=== PATIENT | female | born 1950 | race Caucasian/White ===

== ENCOUNTER 2016-07-02 07:36 | Day surgery (SDC) | payer MEDICARE, OTHER ==
[~2016-07-02 07:36] MED LIST: FENTANYL 250 MCG/5 ML AMP IV PRN; LACTATED RINGERS 1,000 ML IV SCH; MIDAZOLAM HCL 5 MG/5 ML VIAL IV PRN
[2016-07-02] MEDS ORDERED: LACTATED RINGERS 1,000 ML ONE (07:56)
[2016-07-02] MEDS ORDERED: IV START KIT ONE (07:56)
[2016-07-02] MEDS ORDERED: FENTANYL 5 ML ONE (08:20)
[2016-07-02] MEDS ORDERED: MIDAZOLAM HCL 5 MG/5 ML VIAL ONE (08:20)
--- NOTE | 2016-07-06 13:27 | SURGPATH ---
[facility] [address] [place] [id number] Patient Name: LACEY JANG MR#: [id number] : 1950 Gender: F Specimen #: [id number] Collected: 07/02/2016 Received: 07/05/2016 Reported: 07/06/2016 Submitting Phys: TORI DIAS Copy To Phys: [facility] Clinical History / Pre-Operative Diagnosis: SCREENING; + HEMOCCULT BLOOD IN STOOL Specimen Source / Surgical Procedure Performed: PROXIMAL ASCENDING COLON POLYP-COLONOSCOPY Interpretation: PROXIMAL ASCENDING COLON, POLYP, BIOPSY: - TUBULAR ADENOMA Electronically Signed Out Maci Kelly M.D. Gross Description: The specimen is received in a formalin filled container labeled with the patient's name and "proximal ascending colon polyp". A polypoid terrazas biopsy is 0.7 x 0.6 x 0.5 cm. Bisected. Totally embedded in one cassette. Jon Walker, P.A. Microscopic Description: Sections show fragments of adenomatous colonic mucosa without high grade dysplasia. 1: 23717 D12.2
== END 2016-07-02 09:42 | disposition home or self-care (01) ==
LOC: SDC 07:36
PROVIDERS: ATTEND Internal Medicine Gastroenterology
PROC: 0DBK8ZX Excision of Ascending Colon, Via Natural or Artificial Opening Endoscopic, Diagnostic (ICD-10-PCS; principal; 2016-07-02)
DX: R19.5 Other fecal abnormalities (principal); D12.2 Benign neoplasm of ascending colon; E11.9 Type 2 diabetes mellitus without complications; E78.5 Hyperlipidemia, unspecified; C03.9 Malignant neoplasm of gum, unspecified; M81.0 Age-related osteoporosis without current pathological fracture; G31.84 Mild cognitive impairment of uncertain or unknown etiology; Z79.84 Long term (current) use of oral hypoglycemic drugs
CPT/HCPCS: 45385; J3010; J2250; J7120